=== PATIENT | male | born 1980 | race Two or more races ===

== ENCOUNTER 2019-03-25 16:06 | Emergency (ER) | payer BC, OTHER ==
[~2019-03-25] VITALS: Ht 185.4 cm; Wt 81.8 kg
[2019-03-25 16:10] VITALS: BP 140/98
[2019-03-25] MEDS ORDERED: LIDOcaine 5% patch TP STA (17:34)
[2019-03-25] MEDS ORDERED: ketorolac tromethamine 15mg/ml inj. IM ONE (17:35)
[2019-03-25] MEDS ORDERED: LIDO700A32 TOP (17:42)
== END 2019-03-25 18:19 | disposition home or self-care (01) ==
LOC: ER 16:07
DX: R10.9 Unspecified abdominal pain (principal); R07.81 Pleurodynia; Z79.899 Other long term (current) drug therapy
CPT/HCPCS: 99283; J1885